=== PATIENT | female | born 1990 | race African-American/Black ===

== ENCOUNTER 2018-06-20 05:24 | Inpatient (IN) | payer OTHER ==
[2018-06-20] MEDS ORDERED: CEFAZOLIN 3 GM in DEXTROSE 5% 100 ML IV (06:00)
[2018-06-20] MEDS ORDERED: CARBOPROST 250 MCG INJ IM ×2 (06:00→14:00)
[2018-06-20] MEDS ORDERED: METHYLERGONOVINE 0.2 MG INJ IM ×2 (06:00→14:00)
[2018-06-20] MEDS ORDERED: MISOPROSTOL 200 MCG TAB PR ×2 (06:00→14:00)
[2018-06-20] MEDS ORDERED: OXYTOCIN 30 UNITS/LR 500 ML IV ×3 (06:00→14:00)
[2018-06-20] MEDS: LACTATED RINGER'S 1,000 ML IV (06:11)
[2018-06-20 06:26] LABS: ADD MAN DIFF? NO
[2018-06-20 06:29] LABS: BASOPHILS % 0.1 % (0.0-2.0); EOSINOPHILS % 0.4 % (0.0-7.0); HEMATOCRIT 31.9 % (37.0-47.0); HEMOGLOBIN 9.8 g/dl (12.0-16.0); LYMPHOCYTES # 2.5 10^3/ul (0.8-2.9); LYMPHOCYTES % 24.4 % (15.0-51.0); MEAN CORPUSCULAR HEMOGLOBIN 23.3 pg (29.0-33.0); MEAN CORPUSCULAR HGB CONC 30.7 g/dl (32.0-37.0); MEAN PLATELET VOLUME 11.8 fl (7.4-10.4); MONOCYTE # 0.8 10^3/ul (0.3-0.9); NEUTROPHIL # 6.8 10^3/ul (1.6-7.5); NEUTROPHILS % 66.8 % (39.0-77.0); PLATELET COUNT 272 10^3/UL (140-415); RED CELL DISTRIBUTION WIDTH 14.6 % (11.5-14.5)
[2018-06-20 06:29] LABS: WHITE BLOOD COUNT 10.1 10^3/ul (4.8-10.8)
[2018-06-20 06:49] LABS: INR 0.86; PROTIME 11.8 Sec (11.9-14.9); PT RATIO 0.9
[2018-06-20 06:50] LABS: PARTIAL THROMBOPLASTIN TIME 25.6 Sec (23.0-35.0)
[2018-06-20 10:27] LABS: AMPHETAMINE/METHAMPHETAMINE NEGATIVE (NEGATIVE); BARBITURATES NEGATIVE (NEGATIVE); BENZODIAZEPINES NEGATIVE (NEGATIVE); CANNABINOIDS NEGATIVE (NEGATIVE); COCAINE NEGATIVE (NEGATIVE); OPIATES NEGATIVE (NEGATIVE)
[2018-06-20] MEDS: CITRIC ACID/NA CITRATE 30 ML CUP PO (12:00)
[2018-06-20] MEDS ORDERED: CITRIC ACID/NA CITRATE 30 ML CUP (12:02)
[2018-06-20] MEDS ORDERED: morphine SULFATE/PF (10 MG/10 ML) INJ (12:40)
[2018-06-20] MEDS ORDERED: KETOROLAC 30 MG INJ (12:40)
[2018-06-20] MEDS ORDERED: ONDANSETRON 4 MG INJ (12:40)
[2018-06-20] MEDS ORDERED: METOCLOPRAMIDE 10 MG INJ (12:40)
[2018-06-20] MEDS ORDERED: FENTAnyl 50 MCG/ML VIAL (13:22)
[2018-06-20] MEDS ORDERED: LANOLIN 7 GM TUBE TOP (14:00)
[2018-06-20] MEDS ORDERED: morphine 2 MG INJ IV ×3 (14:00)
[2018-06-20] MEDS ORDERED: OXYCODONE/ACETAMINOPHEN (5/325) TAB PO (14:00)
[2018-06-20] MEDS ORDERED: ONDANSETRON 4 MG INJ IV ×2 (14:00)
[2018-06-20] MEDS ORDERED: morphine (1 MG/ML) 10ML SYRINGE IV ×3 (14:00)
[2018-06-20] MEDS ORDERED: NALOXONE (0.4 MG/ML) INJ IV (14:00)
[2018-06-20] MEDS ORDERED: MEPERIDINE 25 MG INJ IV (14:00)
[2018-06-20] MEDS: DIPHENHYDRAMINE 50 MG INJ IV (14:08)
[2018-06-20] MEDS: OXYTOCIN 30 UNITS/LR 500 ML IV ×2 (16:17→17:12)
[2018-06-20 20:47] LABS: RAPID PLASMA REAGIN NONREACTIVE (NR)
[2018-06-20] MEDS: SENNA/DOCUSATE NA (8.6MG/50MG) TAB PO (21:00)
[2018-06-20] MEDS: CEFAZOLIN 2 GM/50 ML (PMX) 50 ML IVPB (21:06)
[2018-06-21] MEDS: DIPHENHYDRAMINE 50 MG INJ IV ×2 (00:22→08:22)
[2018-06-21] MEDS: LACTATED RINGER'S 1,000 ML IV ×4 (03:22→21:00)
[2018-06-21] MEDS: CEFAZOLIN 2 GM/50 ML (PMX) 50 ML IVPB ×2 (06:04→07:00)
[2018-06-21] MEDS: KETOROLAC 30 MG INJ IV ×2 (06:20→12:13)
[2018-06-21 08:27] LABS: ADD MAN DIFF? NO
[2018-06-21 08:32] LABS: BASOPHILS % 0.2 % (0.0-2.0); EOSINOPHILS % 0.4 % (0.0-7.0); HEMATOCRIT 27.7 % (37.0-47.0); HEMOGLOBIN 8.5 g/dl (12.0-16.0); LYMPHOCYTES # 2.1 10^3/ul (0.8-2.9); MEAN CORPUSCULAR HEMOGLOBIN 23.2 pg (29.0-33.0); MEAN CORPUSCULAR HGB CONC 30.7 g/dl (32.0-37.0); MEAN CORPUSCULAR VOLUME 75.5 fl (82.0-101.0); MEAN PLATELET VOLUME 12.6 fl (7.4-10.4); MONOCYTE # 0.8 10^3/ul (0.3-0.9); MONOCYTES % 8.3 % (0.0-11.0); NEUTROPHILS % 69.8 % (39.0-77.0); PLATELET COUNT 261 10^3/UL (140-415); RED BLOOD COUNT 3.67 10^6/ul (4.20-5.40); RED CELL DISTRIBUTION WIDTH 14.8 % (11.5-14.5)
[2018-06-21] MEDS: SENNA/DOCUSATE NA (8.6MG/50MG) TAB PO ×2 (09:00→21:08)
[2018-06-21] MEDS: IBUPROFEN 600 MG TAB PO ×2 (17:19→23:41)
[2018-06-21] MEDS: OXYCODONE/ACETAMINOPHEN (5/325) TAB PO (21:08)
[2018-06-21] MEDS: FERROUS SULFATE (EC) 325 MG TAB PO (21:08)
[2018-06-21] MEDS: URSODIOL 300 MG CAP PO (21:10)
[2018-06-22] MEDS: IBUPROFEN 600 MG TAB PO ×4 (05:42→23:25)
[2018-06-22] MEDS: SENNA/DOCUSATE NA (8.6MG/50MG) TAB PO ×2 (10:25→21:00)
[2018-06-22] MEDS: URSODIOL 300 MG CAP PO ×2 (10:25→20:44)
[2018-06-22] MEDS: FERROUS SULFATE (EC) 325 MG TAB PO ×2 (10:25→20:44)
[2018-06-22] MEDS: NEOMYC/POLYMYX/BACIT 0.9 GM OINT TOP ×2 (17:31→23:24)
[2018-06-22] MEDS ORDERED: NEOMYC/POLYMYX/BACIT 30 GM OINT TOP (21:00)
[2018-06-22] MEDS: OXYCODONE/ACETAMINOPHEN (5/325) TAB PO (23:56)
[2018-06-23] MEDS: IBUPROFEN 600 MG TAB PO ×2 (05:38→12:26)
[2018-06-23] MEDS: NEOMYC/POLYMYX/BACIT 0.9 GM OINT TOP (08:52)
[2018-06-23] MEDS: SENNA/DOCUSATE NA (8.6MG/50MG) TAB PO (09:07)
[2018-06-23] MEDS: URSODIOL 300 MG CAP PO (09:07)
[2018-06-23] MEDS: FERROUS SULFATE (EC) 325 MG TAB PO (09:07)
== END 2018-06-23 17:30 | disposition home or self-care (01) | DRG 786 ==
LOC: L-D 05:24 → PP1 16:55
PROVIDERS: Obstetrics & Gynecology
PROC: 10D00Z1 Extraction of Products of Conception, Low, Open Approach (ICD-10-PCS; principal; 2018-06-20 07:30)
DX: O34.211 Maternal care for low transverse scar from previous cesarean delivery (principal); O60.14X0 Preterm labor third trimester with preterm delivery third trimester, not applicable or unspecified; K83.1 Obstruction of bile duct; O26.62 Liver and biliary tract disorders in childbirth; Z3A.36 36 weeks gestation of pregnancy; Z37.0 Single live birth
CPT/HCPCS: 80307; 85025; 85610; 85730; 86592; 86850; 86900; 86901; 99464